=== PATIENT | female | born 2000 | race Caucasian/White ===

== ENCOUNTER 2024-11-26 14:00 | Outpatient (AMB) | payer MEDICAID, SELFPAY ==
[2024-11-26 14:34] VITALS: BP 114/73; PULSE 79; RESP 18; TEMP 36.2; O2SAT 98; BMI 33.2
--- NOTE | 2024-11-26 14:34 | AMB.OBINITIA ---
Vital Signs 11/26/24 14:34 Height 1.65 m Height Method Stated Weight 90.492 kg Weight Measurement Method Standing Scale BMI 33.2 BP 114/73 Blood Pressure Source Automatic Cuff Blood Pressure Location Left Upper Arm Position Sitting Respiration 18 Pulse 79 Pulse Source Monitor Temp 97.2 F Temp Source Oral Pulse Oximetry (%) 98 Oxygen Delivery Method Room Air Allergies/Home Meds Allergies & Medications Allergies No Known Allergies Allergy (Verified 11/26/24 14:35) Medication Reconciliation cholecalciferol (vitamin D3) 25 mcg (1,000 unit) capsule (Vitamin D3) 1,000 unit PO QDAY 04/03/18 [History Confirmed 11/26/24] cyclobenzaprine 10 mg tablet 10 mg PO BID #10 tabs 04/03/18 [Rx Confirmed 11/26/24] naproxen 500 mg tablet 500 mg PO BID PRN pain #20 tabs 04/03/18 [Rx Confirmed 11/26/24] Intake Visit Data Collection New Patient or Established: New Patient not seen in past 3 years at [facility] (considered New) Reason for Visit:: OB TRANSFER Seen by Clinical Staff ONLY (RN/MA): No Assistant Federal Public Defender Required: No Do You Feel Safe at Home: Yes Authorities Contacted: N/A PCP or OBGYN visit in last 3 months: Yes Hx Now: Yes Are you currently on any form of Control: No Pain Present Currently: No Pain Scale Used: Chaidez-Johnson/Numerical Pain scale:: 0 Smoking Status Smoking Status: Never smoker Questionnaires Covid-19 Vaccine Questionnaire Has patient been vacinated for Covid-19 Have you been vacinated for Covid-19: Yes PHQ-9 PHQ-2 Over the last 2 weeks, how often have you been bothered by any of the following problems? 1. Little interest or pleasure in doing things: not at all 2. Feeling down, depressed, or hopeless: not at all Total score: 0 PHQ-9 3. Trouble falling or staying asleep, or sleeping too much: Not at all 4. Feeling tired or having little energy: Not at all 5. Poor appetite or overeating: Not at all 6. Feeling bad about yourself - or that you are a failure or have let yourself or your family down: Not at all 7. Trouble concentrating on things, such as reading the newspaper or watching television: Not at all 8. Moving or speaking so slowly that other people could have noticed? - Or the opposite - being so fidgety or restless that you have been moving around a lot more than usual: not at all 9. Thoughts that you would be better off or of hurting yourself in some way: Not at all Total score: 0 If you checked off any problems, how difficult have these problems made it for you to do your work, take care of things at home, or get along with other people?: not difficult at all Source: Developed by Drs. Manuelito Soliz, Arely Dong, J Luis Torres and colleagues, with an educational glenn from [employer]. Depression screen completed yes Social History Living Situation History Marital Status: Single Lives With: Family Housing: House Tobacco History Smoking Status: Never smoker Second Hand Smoke Exposure: No Alcohol History Alcohol Intake: Never Domestic Abuse History Do You Feel Safe at Home: Yes History of Present Illness HPI Narrative 24 yo g1po for OBI. OB transfer from Dr Aquino. lmp 03/28/24. EDC 01/02/25. poor dates. menses q month. 1st sono on 08/14/24: 17w6. changed EDC to 01/16/25. f/u sono 10/16/24; 27.4. edc 01/11/25. final ROBINA: 01/16/25. patient is B+,abs-, RPR::NR, Rubella imm, HBSAG-,HIV-,HC-, GC/CT-, 1hr gtt:wnl, A1c;113. NIPT/AFP and carrier screen- OB Initial Visit OB Flowsheet OB Flowsheet Initial Weight: Not Recorded Date <del>?</del> EGA Weight BP Alb Glu CTX Pres Fundal ht FHR Mov Dilation Station Effacement Hx Notes Visit Note 11/26/24 <del>?</del> 32w 5d 90.492 kg 114/73 absent unknown 31 146 active 24 yo , OB transfer from Dr Aquino. no problem with . no PTL complaints, fetus active. decline TDAP today discuss TDAP. discuss PTL precaution, increase fluid, fkc BID. continue PNV, discuss diet and weight, rtc 2 week OBC Menstrual History Menstrual reliability: definite Flow: normal Menstrual regularity: regular Monthly: Yes Age at menarche: 11 On control pills at conception: No OB History : 1 Para: 0 Hx # Pregnancies: 0 Hx Total # of Abortions (Spontaneous & Elective): 0 # of Living Children: 0 Infection History & Risk Evaluation History of STDs: none HIV risk evaluation: low risk Hepatitis B risk evaluation: low risk Patient or partner has history of Genital Herpes: No Varicella/chicken pox status: immunized Genetic Screening & History Genetic Screening/Teratology Counseling - Includes patient, baby's father, or anyone in either family with: 1. Patient's age 35 years or older as of estimated date of delivery: No 2. Thalassemia (Portuguese, Swiss, Mediterranean, or Background); MCV less than 80: No 3. Neural Tube Defect (Meningomyelocele, Spina Bifida, or Anencephaly): No 4. Congenital Heart Defect: No 5. Down Syndrome: No 6. Vamsi-Sachs (Ashkenazi Gnosticism, Cajun, Macedonian Kittitian): No 7. Oksana Disease (Ashkenazi Gnosticism): No 8. Familial Dysautonomia (Ashkenazi Gnosticism): No 9. Sickle Cell Disease or Trait (): No 10. Hemophilia or other blood disorders: No 11. Muscular Dystrophy: No 12. Cystic Fibrosis: No 13. Sanchez's Chorea: No 14. Mental Retardation/Autism: No 15. Other inherited genetic or chromosomal disorder: No 16. Maternal Metabolic Disorder (EG,TYPE 1 Diabetes, PKU): No 17. Patient or baby's father had a child with defects not listed above: No 18. Recurrent loss or a stillbirth: No 19. Medications (including supplements, vitamins, herbs or otc drugs)/illicit/recreational drugs/alcohol since last menstrual period: No 20. Any other: No Infection History 1. Live with someone with TB or exposed to TB: No 2. Rash or viral illness since last menstrual period: No 3. Hepatitis B,C: No Other (see comments) Source: [employer] Review of Systems Review of Systems Systems Reviewed: All systems reviewed, normal except as documented Exam General Limitations: no limitations General Appearance: alert, in no apparent distress, comfortable, cooperative, healthy appearing, well developed and well groomed Head Head exam: atraumatic, normocephalic and normal inspection Resp Respiratory exam: Present normal lung sounds bilaterally Card Cardiovascular exam: Present regular rate, normal rhythm and normal heart sounds Abdominal Abdominal exam: Present soft and normal bowel sounds Psych Psychiatric exam: Present normal affect and normal mood Office Procedures OB Clinic LOC & Office Proc's Nursing/Assessment Patient Status: Initial/New Patient OB Clinic Nursing Assessment: Medication Reconciliation, Update PMH in EMR and Vital Signs OB Clinic Coordination of Care: Education Complex Pt/Fam, Consent,records obtained, informed consent, Lab and Imaging orders, Results/Orders obtained and Staff clarify orders Special Needs: Heart tones New Patient Charge New Patient Point Assignment: [id number] New Patient 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 rtc 2 week obc Additional Plan Follow Up: 2 Weeks (obc)
== END 2024-11-26 14:39 | disposition home or self-care (01) ==
LOC: HODSOBC 14:00
PROVIDERS: PCP Family Medicine; Referring Provider Family Medicine; Supervising Provider Advanced Practice Midwife; Visit Provider Advanced Practice Midwife
DX: Z34.03 Encounter for supervision of normal first pregnancy, third trimester (principal); Z3A.32 32 weeks gestation of pregnancy; Z28.21 Immunization not carried out because of patient refusal
CPT/HCPCS: 99203; G0463

== ENCOUNTER 2024-12-24 13:56 | Outpatient (AMB) | payer MEDICAID, SELFPAY ==
[2024-12-24 14:18] VITALS: BP 115/83; PULSE 86; RESP 17; TEMP 36.7; O2SAT 98; BMI 34.7
--- NOTE | 2024-12-24 14:18 | OBCLNT_ITS ---
Vital Signs 12/24/24 14:18 Height 1.65 m Height Method Measured Weight 94.404 kg Weight Measurement Method Standing Scale BMI 34.7 BP 115/83 Blood Pressure Source Automatic Cuff Blood Pressure Location Right Upper Arm Position Sitting Respiration 17 Pulse 86 Pulse Source Monitor Temp 98.0 F Temp Source Temporal Artery Scan Pulse Oximetry (%) 98 Oxygen Delivery Method Room Air Allergies/Home Meds Allergies & Medications Allergies No Known Allergies Allergy (Verified 12/24/24 14:19) Medication Reconciliation cholecalciferol (vitamin D3) 25 mcg (1,000 unit) capsule (Vitamin D3) 1,000 unit PO QDAY 04/03/18 [History Confirmed 12/24/24] cyclobenzaprine 10 mg tablet 10 mg PO BID #10 tabs 04/03/18 [Rx Confirmed 12/24/24] naproxen 500 mg tablet 500 mg PO BID PRN pain #20 tabs 04/03/18 [Rx Confirmed 12/24/24] Intake Visit Data Collection New Patient or Established: Established Patient (seen at [facility] within 3 years) Reason for Visit:: OBC Consent obtained for Telemed Visit: No Seen by Clinical Staff ONLY (RN/MA): No Cnc Set Up Operator Required: No Do You Feel Safe at Home: Yes Authorities Contacted: N/A PCP or OBGYN visit in last 3 months: Yes Date of Last PCP or OBGYN visit: 11/26/24 Hx Now: Yes Are you currently on any form of Control: No Pain Present Currently: No Pain Scale Used: Chaidez-Johnson/Numerical Pain scale:: 0 Smoking Status Smoking Status: Never smoker Questionnaires Covid-19 Vaccine Questionnaire Has patient been vacinated for Covid-19 Have you been vacinated for Covid-19: Yes PHQ-9 PHQ-2 Over the last 2 weeks, how often have you been bothered by any of the following problems? 1. Little interest or pleasure in doing things: not at all PHQ-9 8. Moving or speaking so slowly that other people could have noticed? - Or the opposite - being so fidgety or restless that you have been moving around a lot more than usual: not at all Source: Developed by Drs. Manuelito Soliz, Arely Dong, J Luis Torres and colleagues, with an educational glenn from [employer]. Social History Living Situation History Lives With: Family Housing: House Tobacco History Smoking Status: Never smoker Second Hand Smoke Exposure: No Alcohol History Alcohol Intake: Never Domestic Abuse History Do You Feel Safe at Home: Yes Care OB Visit Log OB Flowsheet Initial Weight: Not Recorded Date -?-?-?-?-?-?-?-?-?-?-?-?- EGA Weight BP Alb Glu CTX Pres Fundal ht FHR Mov Dilation Station Effacement Hx Notes Visit Note 11/26/24 -?-?-?-?-?-?-?-?-?-?-?-?- 32w 5d 90.492 kg 114/73 absent unknown 31 146 active 24 yo , OB transfer from Dr Aquino. no problem with . no PTL complaints, fetus active. decline TDAP today discu ss TDAP. discuss PTL precaution, increase fluid, fkc BID. continue PNV, discuss diet and weight, rtc 2 week OBC 12/24/24 -?-?-?-?-?-?-?-?-?-?-?-?- 36w 5d 94.404 kg 115/83 occasional cephalic 37 145 active 1 -4 50 increased pressure, deneis leaking or bleeding, fetus active increased pressure, deneis leaking or bleeding, fetus acti ve, cx soft,post GBS today, discuss labor precaution, fkc bid, call for sono. comfort measure early labor, discuss danger s/s ROBINA Calculator Estimated Delivery Date Method Current WG Current Estimate 01/16/25 Ultrasound #1 36w 5d Other Estimates 01/02/25 LMP (Uncertain) 38w 5d 01/11/25 Ultrasound #2 37w 3d Notes Visit Date: 11/26/24 Last Updated by: Jen Stout CNM 24 yo g1po. LMP 03/28/24. wrong dates, sono 08/14/24: 17w6. EDC 01/16/25. B+, abs-,rpr;;nr, rub imm, hbsag-, hIV-, HC-, gc/ct-, 1 hr gtt:wnl, A1: 5.1, NIPT/AFP.carrier screen- Office Procedures OB Clinic LOC & Office Proc's Nursing/Assessment Patient Status: Established Patient OB Clinic Nursing Assessment: Medication Reconciliation, Update PMH in EMR and Vital Signs OB Clinic Coordination of Care: Complex Care and Chronic Disease 1-5, Consent,records obtained, informed consent, Education Simp Pt/Fam, Results/Orders obtained and Staff clarify orders Special Needs: Heart tones Established Patient Charge Established Patient Point Assignment: 120 Established Patient Point Charge: EP Level 4 (120-155) Assessment & Plan Diagnosis / Problem List (1) Encounter for supervision of high risk in third trimester, antepartum: Status: Acute Plan Discussed labor precautions. GBS today. Discussed kick count twice a day. Discussed dangerously signs and symptoms. And ER precautions. Make called for ultrasound results Additional Plan Follow Up: 1 Week (obc)
== END 2024-12-24 14:51 | disposition home or self-care (01) ==
LOC: HODSOBC 13:56
PROVIDERS: PCP Family Medicine; Referring Provider Family Medicine; Supervising Provider Advanced Practice Midwife; Visit Provider Advanced Practice Midwife
DX: O09.93 Supervision of high risk pregnancy, unspecified, third trimester (principal); Z3A.36 36 weeks gestation of pregnancy; Z36.85 Encounter for antenatal screening for Streptococcus B
CPT/HCPCS: 99214; G0463

== ENCOUNTER 2025-01-01 14:28 | Outpatient (AMB) | payer MEDICAID, SELFPAY ==
[2025-01-01 14:41] VITALS: BP 114/74; PULSE 86; RESP 17; TEMP 36.5; O2SAT 98; BMI 35.2
--- NOTE | 2025-01-01 14:41 | OBCLNT_ITS ---
Vital Signs 01/01/25 14:41 Height 1.65 m Height Method Measured Weight 95.878 kg Weight Measurement Method Standing Scale BMI 35.2 BP 114/74 Blood Pressure Source Automatic Cuff Blood Pressure Location Right Upper Arm Position Sitting Respiration 17 Pulse 86 Pulse Source Monitor Temp 97.7 F Temp Source Temporal Artery Scan Pulse Oximetry (%) 98 Oxygen Delivery Method Room Air Allergies/Home Meds Allergies & Medications Allergies No Known Allergies Allergy (Verified 01/01/25 14:42) Medication Reconciliation vits no.126-ferrous fum 28 mg iron-folic acid 800 mcg tablet (Classic ) tab PO 01/01/25 [History Confirmed 01/01/25] Intake Visit Data Collection New Patient or Established: Established Patient (seen at [facility] within 3 years) Reason for Visit:: OBC Consent obtained for Telemed Visit: No Seen by Clinical Staff ONLY (RN/MA): No Ditching Machine Engineer Required: No Do You Feel Safe at Home: Yes Authorities Contacted: N/A PCP or OBGYN visit in last 3 months: Yes Date of Last PCP or OBGYN visit: 12/24/24 Hx Now: Yes Are you currently on any form of Control: No Pain Present Currently: No Pain Scale Used: Chaidez-Johnson/Numerical Pain scale:: 0 Smoking Status Smoking Status: Never smoker Questionnaires Covid-19 Vaccine Questionnaire Has patient been vacinated for Covid-19 Have you been vacinated for Covid-19: Yes PHQ-9 PHQ-2 Over the last 2 weeks, how often have you been bothered by any of the following problems? 1. Little interest or pleasure in doing things: not at all PHQ-9 8. Moving or speaking so slowly that other people could have noticed? - Or the opposite - being so fidgety or restless that you have been moving around a lot more than usual: not at all Source: Developed by Drs. Manuelito Soliz, Arely Dong, J Luis Torres and colleagues, with an educational glenn from [employer]. Social History Living Situation History Lives With: Family Housing: House Tobacco History Smoking Status: Never smoker Second Hand Smoke Exposure: No Alcohol History Alcohol Intake: Never Domestic Abuse History Do You Feel Safe at Home: Yes Care OB Visit Log OB Flowsheet Initial Weight: Not Recorded Date -?-?-?-?-?-?-?-?-?-?-?-?- EGA Weight BP Alb Glu CTX Pres Fundal ht FHR Mov Dilation Station Effacement Hx Notes Visit Note 11/26/24 -?-?-?-?-?-?-?-?-?-?-?-?- 32w 5d 90.492 kg 114/73 absent unknown 31 146 active 24 yo , OB transfer from Dr Aquino. no problem with . no PTL complaints, fetus active. decline TDAP today discu ss TDAP. discuss PTL precaution, increase fluid, fkc BID. continue PNV, discuss diet and weight, rtc 2 week OBC 12/24/24 -?-?-?-?-?-?-?-?-?-?-?-?- 36w 5d 94.404 kg 115/83 occasional cephalic 37 145 active 1 -4 50 increased pressure, deneis leaking or bleeding, fetus active increased pressure, deneis leaking or bleeding, fetus acti ve, cx soft,post GBS today, discuss labor precaution, fkc bid, call for sono. comfort measure early labor, discuss danger s/s 01/01/25 -?-?-?-?-?-?-?-?-?-?-?-?- 37w 6d 95.878 kg 114/74 occasional cephalic 37 145 active 1 -4 50 CX: soft. fetus active, OCC uc, no VB or LOF discuss fkc bid, discuss labor precaution and danger s/s, increase fluid, rtc 1 week obc ROBINA Calculator Estimated Delivery Date Method Current WG Current Estimate 01/16/25 Ultrasound #1 37w 6d Other Estimates 01/02/25 LMP (Uncertain) 39w 6d 01/11/25 Ultrasound #2 38w 4d Notes Visit Date: 01/01/25 Last Updated by: Jen Stout CNM 12/24:gbs- Visit Date: 11/26/24 Last Updated by: Jen Stout CNM 24 yo g1po. LMP 03/28/24. wrong dates, sono 08/14/24: 17w6. EDC 01/16/25. B+, abs-,rpr;;nr, rub imm, hbsag-, hIV-, HC-, gc/ct-, 1 hr gtt:wnl, A1: 5.1, NIPT/AFP.carrier screen- Office Procedures OB Clinic LOC & Office Proc's Nursing/Assessment Patient Status: Established Patient OB Clinic Nursing Assessment: Medication Reconciliation, Update PMH in EMR and Vital Signs OB Clinic Coordination of Care: Complex Care and Chronic Disease 1-5, Consent,records obtained, informed consent, Education Simp Pt/Fam and 4+ Authorizations needed Special Needs: Heart tones Established Patient Charge Established Patient Point Assignment: 130 Established Patient Point Charge: EP Level 4 (120-155) Assessment & Plan Diagnosis / Problem List (1) Encounter for supervision of high risk in third trimester, antepartum: Status: Acute Plan Discussed kick counts twice daily. Discussed labor precautions and danger signs symptoms. Continue prenatals. Increase fluids. Return in a week OB check Additional Plan Follow Up: 1 Week (OBC)
== END 2025-01-01 15:59 | disposition home or self-care (01) ==
LOC: HODSOBC 14:28
PROVIDERS: PCP Family Medicine; Referring Provider Family Medicine; Supervising Provider Advanced Practice Midwife; Visit Provider Advanced Practice Midwife
DX: O09.93 Supervision of high risk pregnancy, unspecified, third trimester (principal); Z3A.37 37 weeks gestation of pregnancy
CPT/HCPCS: 99214; G0463

== ENCOUNTER 2025-01-09 13:58 | Outpatient (AMB) | payer MEDICAID, SELFPAY ==
[2025-01-09 14:12] VITALS: BP 103/69; PULSE 68; RESP 17; TEMP 36.8; O2SAT 98; BMI 35.3
--- NOTE | 2025-01-09 14:12 | AMB.OBVISIT ---
Vital Signs 01/09/25 14:12 Height 1.65 m Height Method Stated Weight 96.275 kg Weight Measurement Method Standing Scale BMI 35.3 BP 103/69 Blood Pressure Source Automatic Cuff Blood Pressure Location Right Upper Arm Position Sitting Respiration 17 Pulse 68 Pulse Source Monitor Temp 98.3 F Temp Source Temporal Artery Scan Pulse Oximetry (%) 98 Oxygen Delivery Method Room Air Allergies/Home Meds Allergies & Medications Allergies No Known Allergies Allergy (Verified 01/09/25 14:21) Medication Reconciliation vits no.126-ferrous fum 28 mg iron-folic acid 800 mcg tablet (Classic ) tab PO 01/01/25 [History Confirmed 01/09/25] Intake Visit Data Collection New Patient or Established: Established Patient (seen at [facility] within 3 years) Reason for Visit:: OBC 38W 6D Health Care Coach Required: No Do You Feel Safe at Home: Yes Authorities Contacted: N/A PCP or OBGYN visit in last 3 months: Yes Date of Last PCP or OBGYN visit: 01/01/25 Hx Now: Yes Are you currently on any form of Control: No Pain Present Currently: Yes Pain Location: Abdomen (CRAMPING) Pain Scale Used: Chaidez-Johnson/Numerical Pain scale:: 5 Smoking Status Smoking Status: Never smoker Questionnaires Covid-19 Vaccine Questionnaire Has patient been vacinated for Covid-19 Have you been vacinated for Covid-19: No PHQ-9 PHQ-2 Over the last 2 weeks, how often have you been bothered by any of the following problems? 1. Little interest or pleasure in doing things: not at all 2. Feeling down, depressed, or hopeless: not at all Total score: 0 PHQ-9 3. Trouble falling or staying asleep, or sleeping too much: Not at all 4. Feeling tired or having little energy: Not at all 5. Poor appetite or overeating: Not at all 6. Feeling bad about yourself - or that you are a failure or have let yourself or your family down: Not at all 7. Trouble concentrating on things, such as reading the newspaper or watching television: Not at all 8. Moving or speaking so slowly that other people could have noticed? - Or the opposite - being so fidgety or restless that you have been moving around a lot more than usual: not at all 9. Thoughts that you would be better off or of hurting yourself in some way: Not at all Total score: 0 If you checked off any problems, how difficult have these problems made it for you to do your work, take care of things at home, or get along with other people?: not difficult at all Source: Developed by Drs. Manuelito Soliz, Arely Dong, J Luis Torres and colleagues, with an educational glenn from [employer]. Depression screen completed yes Social History Living Situation History Marital Status: Lives With: Family Housing: House Tobacco History Smoking Status: Never smoker Second Hand Smoke Exposure: No Alcohol History Alcohol Intake: Never Domestic Abuse History Do You Feel Safe at Home: Yes Care OB Visit Log OB Flowsheet Initial Weight: Not Recorded Date <del>?</del> EGA Weight BP Alb Glu CTX Pres Fundal ht FHR Mov Dilation Station Effacement Hx Notes Visit Note 11/26/24 <del>?</del> 32w 5d 90.492 kg 114/73 absent unknown 31 146 active 24 yo , OB transfer from Dr Aquino. no problem with . no PTL complaints, fetus active. decline TDAP today discuss TDAP. discuss PTL precaution, increase fluid, fkc BID. continue PNV, discuss diet and weight, rtc 2 week OBC 12/24/24 <del>?</del> 36w 5d 94.404 kg 115/83 occasional cephalic 37 145 active 1 -4 50 increased pressure, deneis leaking or bleeding, fetus active increased pressure, deneis leaking or bleeding, fetus active, cx soft,post GBS today, discuss labor precaution, fkc bid, call for sono. comfort measure early labor, discuss danger s/s 01/01/25 <del>?</del> 37w 6d 95.878 kg 114/74 occasional cephalic 37 145 active 1 -4 50 CX: soft. fetus active, OCC uc, no VB or LOF discuss fkc bid, discuss labor precaution and danger s/s, increase fluid, rtc 1 week obc 01/09/25 <del>?</del> 39w 0d 96.275 kg 103/69 occasional cephalic 38 145 active 1 -3 50 cx soft/mid. Reports good movement. Increased cramps today. No bleeding. No leaking fluid. IOL 01/17/25. Discussed labor precautions. I discussed kick counts twice a day. Parameters. Discussed ER precautions. Increase fluids. Discussed weight gain. And induction is scheduled for January 17, 2025. ROBINA Calculator Estimated Delivery Date Method Current WG Current Estimate 01/16/25 Ultrasound #1 39w 0d Other Estimates 01/02/25 LMP (Uncertain) 41w 0d 01/11/25 Ultrasound #2 39w 5d Notes Visit Date: 01/09/25 Last Updated by: Jen Stout CNM 24 yo . 1st ob sono 08/14/24. IUP 17.6, EDC 01/16/25. lmp 03/28/25. EDC 01/02/25. UNsure dates, B+.abs-,rpr;;nr, rub imm, hbsag-,hiv-,gc/ct-, 1 hr gtt wnl. nipt/carrier screen- Visit Date: 01/01/25 Last Updated by: Jen Stout CNM 12/24:gbs- Visit Date: 11/26/24 Last Updated by: Jen Stout CNM 24 yo g1po. LMP 03/28/24. wrong dates, sono 08/14/24: 17w6. EDC 01/16/25. B+, abs-,rpr;;nr, rub imm, hbsag-, hIV-, HC-, gc/ct-, 1 hr gtt:wnl, A1: 5.1, NIPT/AFP.carrier screen- Office Procedures OB Clinic LOC & Office Proc's Nursing/Assessment Patient Status: Established Patient OB Clinic Nursing Assessment: Medication Reconciliation, Update PMH in EMR and Vital Signs OB Clinic Coordination of Care: Complex Care and Chronic Disease 1-5, Consent,records obtained, informed consent, Education Simp Pt/Fam and Staff clarify orders Special Needs: Heart tones Established Patient Charge Established Patient Point Assignment: 115 Established Patient Point Charge: EP Level 3 (80-115) Assessment & Plan Diagnosis / Problem List (1) Encounter for supervision of high risk in third trimester, antepartum: Status: Acute Plan Schedule induction of labor for 01/17/2025. Discussed labor precautions and parameters. I discussed ER precautions. Patient to do kick count twice a day and I reinforced that with her. And I discussed that with her. Walk in comfort measures for early labor. Return in a week OB check Additional Plan Follow Up: 1 Week (obc)
== END 2025-01-09 14:37 | disposition home or self-care (01) ==
LOC: HODSOBC 13:58
PROVIDERS: PCP Family Medicine; Referring Provider Family Medicine; Supervising Provider Advanced Practice Midwife; Visit Provider Advanced Practice Midwife
DX: O09.93 Supervision of high risk pregnancy, unspecified, third trimester (principal); Z3A.39 39 weeks gestation of pregnancy
CPT/HCPCS: 99213; G0463

== ENCOUNTER 2025-01-10 16:00 | Inpatient (IN) | payer MEDICAID, SELFPAY ==
[2025-01-10] VITALS (12 sets, daily range): BP systolic 117–130; BP diastolic 71–83; PULSE 64–103; RESP 16–18; TEMP 36.8–36.9; O2SAT 94–99; BMI 33.2
[2025-01-10 16:28] LABS: ROM Kit Lot # 58102387; Swb Mxed in Solvent 1 min? Yes
[2025-01-10 16:29] LABS: ROM Kit Exp Date# 11-15-27; ROM Swab Mixed By: BF; Rupture of Fetal Membranes Positive (Negative)
--- NOTE | 2025-01-10 17:02 | XR_ITS ---
Examination: age limited TECHNIQUE: Limited transabdominal sonographic images pelvis INDICATIONS: Unknown weight and unknown presentation Date and time: January 10, 2025, 1717 hours FINDINGS: Viable intrauterine gestation cephalic presentation. Cardiac motion 160 bpm Amniotic fluid index 6.0 cm Estimated weight 3616.6 g Estimated gestational age 39 weeks 0 days IMPRESSION: A viable intrauterine gestation cephalic presentation
[2025-01-10 17:43] LABS: Basophils # (Auto) 0.0 Thou/mm3 (0.0-0.2); Basophils % (Auto) 0 % (0-2.5); Eosinophils # (Auto) 0.0 Thou/mm3 (0.0-0.5); Eosinophils % (Auto) 0 % (0-10); Hematocrit 38.2 % (36.0-46.0); Hemoglobin 12.8 g/dL (12.0-16.0); Immature Granulocytes Auto 0.04 Thou/mm3 (0.00-0.00); Lymphocytes # (Auto) 1.8 Thou/mm3 (1.0-4.8); Lymphocytes % (Auto) 21 % (10-50); Mean Corpuscular HGB Conc 33.5 g/dl (31.0-37.0); Mean Corpuscular Hemoglobin 31.6 pg (25.0-35.0); Mean Corpuscular Volume 94 fL (80-100); Monocytes # (Auto) 0.5 Thou/mm3 (0.0-0.8); Monocytes % (Auto) 6 % (0-12); Neutrophils # (Auto) 6.4 Thou/mm3 (1.8-7.7); Neutrophils % (Auto) 73 % (37-80); Nucleated Red Blood Cell # 0.00 Thou/mm3 (0.00-0.00); Nucleated Red Blood Cell % 0 /100 WBC (0); Platelet Count 193 Thou/mm3 (140-440); RDW Standard Deviation 45.6 fL (36.4-46.3); Red Blood Count 4.05 Miln/mm3 (4.00-5.20); White Blood Count 8.8 Thou/mm3 (3.6-11.0)
[2025-01-10 18:20] LABS: Syphilis Nonreactive (Nonreactive)
--- NOTE | 2025-01-10 19:18 | PD.LDHP ---
Documentation for date of: 01/10/25 OB Labor/Induct. HPI History of Present Illness Chief complaint: Ruptured membranes at 1500 01/10/2025 : 1 Para: 0 Term pregnancies: 0 pregnancies: 0 Living children: 0 History of Abortions: Spontaneous and Elective: 0 History of Vaginal deliveries: 0 History of sections: No History of : No ROBINA: 01/16/25 Gestational Age (weeks): 39 Gestational Age (days): 1 History of present illness: The patient is a 24-year-old G1, P0 who started her care with Dr. Hameed and then transferred to [facility] at the [facility] who presented reporting ruptured membranes at 3:00 this afternoon. On presentation she was 1 cm. She had an ultrasound performed revealing a vertex presentation. I examined the patient approximately 7:00 PM and she was 2 cm approximately 70% effaced with a -2 station and posterior cervix. Patient had a lot of clear fluid with exam. The plan will be a Cytotec induction. Patient was given 50 mg milligrams of Cytotec at 1840. Group B strep is negative. History of Present Dating criteria: based on 2nd trimester US only Adequate Care: Yes Ultrasounds: normal mid trimester US Obstetrical complications: none Medical complications: none Labs Maternal Blood Type: B Pos Labs: Positive: Rubella Titre, Negative: RPR, Hepatitis B, HIV, Chlamydia, Gonorrhea and Group Beta Strep and Unknown: Herpes Type 1, Herpes Type 2 and Covid-19 Review of Systems Review of Systems Narrative Review of Systems: Patient reports leaking clear fluid since 3:00 this afternoon mild cramping no heavy bleeding. She is interested in epidural. Past Medical History Surgical History SURGICAL: Negative Section Meds Home Medications and Allergies Home Medications ?Medication ?Instructions ?Recorded ?Confirmed ?Type vits no.126-ferrous fum 1 tab PO QDAY 01/01/25 01/10/25 History 28 mg iron-folic acid 800 mcg tablet (Classic ) Allergies Allergy/AdvReac Type Severity Reaction Status Date / Time No Known Allergies Allergy Verified 01/10/25 16:11 OB Exam Physical Exam Vital signs: Temp Pulse Resp BP O2 Del Method 98.3 F 71 17 126/76 Room Air 01/10/25 16:06 01/10/25 18:34 01/10/25 16:06 01/10/25 18:34 01/10/25 16:06 Detailed Labor and Delivery Exam Dilation (cm): 2 Effacement (%): 80 Cervix position: posterior station: -2 Consistency: medium Presentation: Vertex Membranes: ruptured Amniotic fluid: clear Baseline heart rate: 140 monitor accelerations: 15x15 monitor decelerations: None extermination supervisor variability: Moderate (11-25) Tachysystole: No Contraction intensity: Mild OB Results Labs 01/10/25 17:20 Labs: Short CBC 01/10/25 Range/Units 17:20 WBC 8.8 (3.6-11.0) Thou/mm3 Hgb 12.8 (12.0-16.0) g/dL Hct 38.2 (36.0-46.0) % Plt Count 193 (140-440) Thou/mm3 OB Assessment & Plan Assessment and Plan (1) Encounter for supervision of high risk in third trimester, antepartum: Status: Acute (2) Full-term premature rupture of membranes: Status: Acute Assessment and plan: Admit patient. Cytotec induction of labor. Additional Plan Induction method: per misoprostol protocol Plan: induction Additional Plan Comment: Baby is vertex 3616 g. (2) Full-term premature rupture of membranes Qualifiers: PROM onset of labor timing: unspecified duration between rupture of membranes and onset of labor Qualified Code(s): O42.92 - Full-term premature rupture of membranes, unspecified as to length of time between rupture and onset of labor
[2025-01-10] MEDS: fentaNYL CIT INJ 50 mCg/ML AMP 2ML 100 MCG IVP (22:20)
[2025-01-10] MEDS: RINGERS LACTATED 1000 ML 1,000 ML 100 ML IV (23:50)
[2025-01-11] VITALS (214 sets, daily range): BP systolic 97–198; BP diastolic 53–136; PULSE 69–136; RESP 16–20; TEMP 36.7–38.1; O2SAT 88–100
[2025-01-11] MEDS: RINGERS LACTATED 1000 ML 1,000 ML 100 ML IV ×3 (00:51→10:02)
[2025-01-11] MEDS: ceFAZolin/D5W 2 GM IV 2 GM/100 ML BAG IV ×3 (06:10→21:50)
[2025-01-11] MEDS: OXYTOCIN in NS 30 units 30 UNIT/500 ML BAG IV (08:06)
--- NOTE | 2025-01-11 08:34 | PD.LDPN ---
Documentation for date of: 01/11/25 OB Labor Progress Note Pelvic Exam Dilation (cm): 5 Effacement (%): 80 station: -1 Amniotic membrane status: Ruptured Contractions Monitor mode: Internal Contraction frequency: 3-5 Contraction intensity: Moderate Status status: Category l Assessment and Plan Comments: Patient is a 24-year-old 1 para 0 who was handed off to me from the overnight on-call physician, patient was admitted in early labor yesterday with spontaneous rupture of membranes at 1500 hrs. patient has not made any significant progress, she did spike a temperature of 99.6 currently on Ancef and Tylenol Assessment and plan Continue current plan high likelihood of proceeding to delivery if patient shows signs of chorioamnionitis
[2025-01-11] MEDS: ACETAMINOPHEN IVPB 1,000 MG/100 ML VIAL 250 MG IV (09:33)
[2025-01-11] MEDS: MINERAL OIL 30 ML UDC TOP (10:56)
[2025-01-11] MEDS: OXYTOCIN in NS 20 units 20 UNIT/1,000 ML BAG 125 UNIT IV (11:10)
[2025-01-11] MEDS: TRANEXAMIC ACID 1,000 MG IVPB 1,000 MG/100 ML BAG 200 MG IV ×2 (11:15→20:36)
[2025-01-11] MEDS: BENZO/LANO/ALOE (Dermoplast) 60 GM CAN 1 SPRAY TOP (11:22)
--- NOTE | 2025-01-11 11:36 | PD.LDDELS ---
Vacuum Assisted Delivery General Patient Counseled by physician:: Yes Informed consent to patient:: Yes Estimated weight:: 3175.147 g Cervical dilation:: fully dilated station:: +2 position:: LOP Molding:: No Caput:: Yes Vacuum Application Vacuum type:: Mityvac Vacuum application:: flexing median Cup Placement Flexion point identified:: Yes Cup approp. 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 Data ([place]) Data Hx Section: No : 1 Term: 0 : 0 Livin Abortions: Spontaneous & Theraputic: 0 Delivery Data ([place]) Labor Data Initiation of labor: Induction Induction/Augmentation Agent: Cytotec-PO and Pitocin ROM date: 01/10/25 ROM time: 15:30 Amniotic membrane rupture type: Spontaneous Amniotic fluid description: Clear Delivery Data Onset of labor date: 01/10/25 Onset of labor time: 15:30 Complete dilation date: 01/11/25 Complete dilation time: 10:50 [place] delivery date: 01/11/25 delivery time: 11:09 Placenta delivery date: 01/11/25 Placenta delivery time: 11:13 Stage 1 total time: Labor - Stage 1 Duration 19 hours and 20 minutes Delivered by: Kelvin Campbell Delivery nurse: Nelly Hair RN [place] nurse: Carmen SALAS Shipping And Receiving Supervisor at delivery: Yes (Dr. Hernandez) Support person(s) at delivery: fob and mother of pt Delivery Method Delivery method: Normal Vaginal Delivery Presentation: Vertex Placenta Placenta delivery description: Spontaneous Cord blood sent to lab: Yes cord blood collection: Cord Blood Type Umbilical Cord cord description: 3 Vessels [place] Data ([place]) [place] Data [place]'s gender: Male weight (gms): 3040 g Weight (pounds): 6 lbs and 11.2 ozs length: 51.5 cm 1 minute: 7 5 minutes: 9 10 minutes: 9
[2025-01-11] MEDS: IBUPROFEN TAB 400 MG TABLET 800 MG PO ×2 (11:55→21:56)
[2025-01-12 03:33] VITALS: BP 109/71; PULSE 88; RESP 18; TEMP 36.8; O2SAT 96
[2025-01-12] MEDS: TRANEXAMIC ACID 1,000 MG IVPB 1,000 MG/100 ML BAG 200 MG IV (04:08)
[2025-01-12 05:33] LABS: Basophils # (Auto) 0.0 Thou/mm3 (0.0-0.2); Basophils % (Auto) 0 % (0-2.5); Eosinophils # (Auto) 0.1 Thou/mm3 (0.0-0.5); Eosinophils % (Auto) 0 % (0-10); Hematocrit 30.3 % (36.0-46.0); Hemoglobin 10.4 g/dL (12.0-16.0); Immature Granulocytes Auto 0.09 Thou/mm3 (0.00-0.00); Lymphocytes # (Auto) 2.7 Thou/mm3 (1.0-4.8); Lymphocytes % (Auto) 15 % (10-50); Mean Corpuscular HGB Conc 34.3 g/dl (31.0-37.0); Mean Corpuscular Hemoglobin 32.7 pg (25.0-35.0); Mean Corpuscular Volume 95 fL (80-100); Monocytes # (Auto) 0.8 Thou/mm3 (0.0-0.8); Monocytes % (Auto) 5 % (0-12); Neutrophils # (Auto) 14.5 Thou/mm3 (1.8-7.7); Neutrophils % (Auto) 80 % (37-80); Nucleated Red Blood Cell # 0.00 Thou/mm3 (0.00-0.00); Nucleated Red Blood Cell % 0 /100 WBC (0); Platelet Count 124 Thou/mm3 (140-440); RDW Standard Deviation 48.3 fL (36.4-46.3); Red Blood Count 3.18 Miln/mm3 (4.00-5.20); White Blood Count 18.2 Thou/mm3 (3.6-11.0)
[2025-01-12] MEDS: ceFAZolin/D5W 2 GM IV 2 GM/100 ML BAG IV (05:37)
[2025-01-12 08:30] VITALS: BP 114/75; PULSE 79; RESP 16; TEMP 37.4; O2SAT 97
[2025-01-12] MEDS: DOCUSATE SOD 100 MG CAPSULE PO (09:44)
--- NOTE | 2025-01-12 11:09 | PD.LDPPPRG ---
Subjective Subjective Interval history: The patient is a 24-year-old G1 now P1 001 day #1 status post vacuum-assisted vaginal delivery by Dr. Campbell around 11:00 in the morning on 01/11/2025. She did have vaginal tearing with multiple lacerations. All were first to second-degree's. Dr. Campbell kept the patient on Ancef for 24 hours and TXA for 24 hours. He also placed a Pinto and vaginal packing. The plan will be to remove the Pinto and vaginal vaginal packing now. This morning, patient is resting comfortably in bed with her baby on her chest. Her is at bedside. Patient denies fevers chills heavy vaginal bleeding. Her pain is controlled with oral pain medication. Her predelivery hemoglobin was 12.8. Her postdelivery hemoglobin is 10.4. She has been afebrile. She is working on breast-feeding. She is tolerating a general diet and passing flatus. Her Pinto catheter is draining a large amount of clear yellow urine. Exam Vital Signs Temp Pulse Resp BP Pulse Ox O2 Del Method 99.4 F 79 16 114/75 97 Room Air 01/12/25 08:30 01/12/25 08:30 01/12/25 08:30 01/12/25 08:30 01/12/25 08:30 01/12/25 08:30 Narrative Exam Patient is alert and oriented x 3 in no apparent distress. Her fundus is firm and nontender at umbilicus. Vaginal packing was removed. Patient's outside of her perineum appears grossly normal without a lot of swelling. No signs of vulvar edema or erythema. The lacerations are not examined. Extremities showed no significant edema or erythema Objective Labs 01/12/25 04:47 Labs: Laboratory Results - last 24 hr 01/12/25 04:47 WBC 18.2 H D RBC 3.18 L Hgb 10.4 L D Hct 30.3 L MCV 95 MCH 32.7 MCHC 34.3 RDW Std Deviation 48.3 H Plt Count 124 L D Neut % (Auto) 80 Lymph % (Auto) 15 Mcpherson % (Auto) 5 Eos % (Auto) 0 Baso % (Auto) 0 Neut # (Auto) 14.5 H Lymph # (Auto) 2.7 Mcpherson # (Auto) 0.8 Eos # (Auto) 0.1 Baso # (Auto) 0.0 Immature Gran # (Auto) 0.09 H Absolute Nucleated RBC 0.00 Immature Gran % 1 H Nucleated RBC % 0 Assessment & Plan Problem List (1) care following vaginal delivery: Status: Acute Assessment and plan: The patient is post day #1 status post vacuum-assisted vaginal delivery around 11:00 in the morning for decelerations around 11:00 in the morning 01/11/2025. Pinto catheter removed. Ancef and TXA discontinued. Packing removed. Patient to ambulate. Use the restroom. Will evaluate later to see if patient can be discharged home today. All questions answered. Time Spent With Patient Time: Total time spent is greater than 50% in coordination of care (as documented) at patient's floor/unit and/or counseling patient: Time with patient: less than 15 minutes
--- NOTE | 2025-01-12 12:35 | PC.NURSE ---
@[id number] Dr. Garvin at bedside, removed vaginal packing. patient tolerated well
[2025-01-12 15:44] VITALS: BP 116/74; PULSE 96; RESP 18; TEMP 36.9
[2025-01-12] MEDS: DIPHTH,PERTUSS(ACELL),TET VAC 0.5 ML SYR- ADULT IMi (17:06)
--- NOTE | 2025-01-12 19:40 | PD.LDDS ---
DS: Providers Provider Date of admission: 01/10/25 16:15 Primary care physician: Physician No Primary/Family Admitting Provider: Jennifer Garvin MD ([facility]) Attending Provider on Admission: Kelvin Campbell MD Consults: 01/11/25 12:00 Referral Routine Comment: Attending Provider on DC: Jennifer Garvin MD ([facility]) Discharging Provider: Jennifer Garvin MD ([facility]) Anticipated date of discharge: 01/12/25 DS: Diagnosis Discharge Diagnosis (1) care following vaginal delivery: Status: Acute Assessment & Plan: Patient is day #1 status post vacuum-assisted vaginal delivery around 11:00 in the morning 01/11/2025. She had vaginal packing placed and a Pinto overnight. This was all removed this morning. Patient's hemoglobin is 12.8 predelivery 10.4 postdelivery. She is stable ambulating and wants to go home it is approximately 1999 on 01/12/2025. Problem List Completed Was Problem List Reviewed/Reconciled?: Yes Summary/Hosp Course Brief History: The patient is a 24-year-old G1, P0 who started her care with Dr. Hameed and then transferred to [facility] at the [facility] who presented reporting ruptured membranes at 3:00 this afternoon. On presentation she was 1 cm. She had an ultrasound performed revealing a vertex presentation. I examined the patient approximately 7:00 PM and she was 2 cm approximately 70% effaced with a -2 station and posterior cervix. Patient had a lot of clear fluid with exam. The plan will be a Cytotec induction. Patient was given 50 mg milligrams of Cytotec at 1840. Group B strep is negative. Please see history and physical for further details. The patient went on to progress to complete and had a vacuum-assisted vaginal delivery by Dr. Campbell at 11 AM 01/11/2025. Please see delivery notes for further details. The patient had some lacerations requiring vaginal packing, and overnight Pinto catheter, Ancef for 24 hours and TXA for 24 hours. All this was removed at 11 AM 01/12/2025. Patient then ambulated. Her bleeding was minimal. She was voiding normally. Her pain was under control. She wanted to be discharged home day #1 and was discharged approximately 1999 on 01/12/2025. Peripartum Data Delivery Method: Normal Vaginal Delivery Laceration Description: see Delivery Summary complications: none Status at Discharge Cognitive/behavioral status at discharge: Patient is alert and oriented x 3 in no apparent distress Functional status at discharge: independent ambulation Overall status at discharge: patient is progressing back to baseline Time Spent with Patient Time attestation: Total time spent providing and/or coordinating discharge services: Time spent: Less than 30 minutes Specific discharge activities: Pelvic rest x 6 weeks Exam Vital Signs Temp Pulse Resp BP Pulse Ox O2 Del Method 98.5 F 96 18 116/74 97 Room Air 01/12/25 15:44 01/12/25 15:44 01/12/25 15:44 01/12/25 15:44 01/12/25 08:30 01/12/25 15:44 Narrative Exam Patient is alert and oriented x 3 in no apparent distress. Fundus is firm at umbilicus. Extremities show no significant edema or erythema. Discharge Plan Plan Patient Disposition: HOME (Self Care) Disposition Comment: Stable Prescriptions/Referrals Prescriptions/Med Rec: New acetaminophen 325 mg Tablet 650 mg PO Q6HR PRN (Reason: Patient rated pain of 3) Qty: 60 0RF ibuprofen 400 mg Tablet 800 mg PO Q8HR PRN (Reason: Pain Scale 4-6 (Moderate) Qty: 60 0RF docusate sodium 100 mg Capsule 100 mg PO QDAY Qty: 60 0RF No Action Classic 28 mg iron- 800 mcg tablet 1 tab PO QDAY Referrals: No Primary/Family,Physician [Primary Care Provider] - Patient/Caregiver Discharge Instructions Discharge Activity: activity as tolerated Other Discharge Activity Instructions:: Pelvic rest x 6 weeks Other Discharge Diet Instructions: General Diet, drink lots of water with breast-feeding. Education Materials: After a Vaginal , : Caring for Yourself Print Language: Bulgarian Activity Restrictions/Additional Instructions: Call with heavy bleeding, fevers, or severe depression. Follow-up with your OB in 2 to 4 weeks. Stand Alone Forms: Madelyn Award Info., Patient Portal Info Letter Vaccines Vaccines Given During Stay: TDaP Discharge Order Discharge Orders: Discharge (Routine); Ordered 01/12/25 Ordered By: Jennifer Garvin ([facility]) Planned Discharge Date 01/12/25
== END 2025-01-12 20:46 | disposition home or self-care (01) | DRG 560 ==
LOC: S4SX 01-11 11:17 → S4NX 01-11 14:31
PROVIDERS: Admitting Provider Obstetrics & Gynecology; Visit Provider Obstetrics & Gynecology
DX: O42.92 Full-term premature rupture of membranes, unspecified as to length of time between rupture and onset of labor (principal); Z37.0 Single live birth; Z3A.39 39 weeks gestation of pregnancy; Z23 Encounter for immunization
CPT/HCPCS: 36415; 59025; 59409; 76815; 84112; 85025; 86780; 86850; 86900; 86901; 90715; 94762; J0131; J0689; J2590; J2795; J3010; J3490; J7120; A9270

== ENCOUNTER 2025-01-29 11:27 | Outpatient (AMB) | payer MEDICAID, SELFPAY ==
--- NOTE | 2025-01-29 11:31 | AMBOBPPN_ITS ---
Vital Signs 01/29/25 11:38 Height 1.65 m Height Method Stated Weight 83.518 kg Weight Measurement Method Standing Scale BMI 30.6 BP 117/76 Blood Pressure Source Automatic Cuff Blood Pressure Location Left Upper Arm Position Sitting Respiration 18 Pulse 88 Pulse Source Monitor Temp 98.5 F Temp Source Oral Pulse Oximetry (%) 98 Oxygen Delivery Method Room Air Allergies/Home Meds Allergies & Medications Allergies No Known Allergies Allergy (Verified 01/29/25 11:39) Medication Reconciliation vits no.126-ferrous fum 28 mg iron-folic acid 800 mcg tablet (Classic ) 1 tab PO QDAY 01/01/25 [History Confirmed 01/29/25] acetaminophen 325 mg tablet 650 mg (2 x 325 mg) PO Q6HR PRN Patient rated pain of 3 #60 tabs 01/12/25 [Rx Confirmed 01/29/25] docusate sodium 100 mg capsule 100 mg PO QDAY #60 caps 01/12/25 [Rx Confirmed 01/29/25] ibuprofen 400 mg tablet 800 mg (2 x 400 mg) PO Q8HR PRN Pain Scale 4-6 (Moderate #60 tabs 01/12/25 [Rx Confirmed 01/29/25] Intake Visit Data Collection New Patient or Established: Established Patient (seen at [facility] within 3 years) Reason for Visit:: Seen by Clinical Staff ONLY (RN/MA): No Advanced Research Programs Director Required: No Do You Feel Safe at Home: Yes Authorities Contacted: N/A PCP or OBGYN visit in last 3 months: Yes Hx Now: No Are you currently on any form of Control: No Pain Present Currently: No Pain Scale Used: Chaidez-Johnson/Numerical Pain scale:: 0 Smoking Status Smoking Status: Never smoker 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 History Past Medical History: No Hx Neurological Disorders, No Hx Cardiac Disorders, No Hx Cancer, No Hx Blood Disorders, No Hx Gastrointestinal Disorders, No Hx Renal Disease, No Hx Diabetes Mellitus Type 1 and No Hx Diabetes Mellitus Type 2 Questionnaires Covid-19 Vaccine Questionnaire Has patient been vacinated for Covid-19 Have you been vacinated for Covid-19: Yes Social History Living Situation History Lives With: Family Housing: House Tobacco History Smoking Status: Never smoker Second Hand Smoke Exposure: No Alcohol History Alcohol Intake: Never Domestic Abuse History Do You Feel Safe at Home: Yes EPDS - PP Depression Screening [place] Pospartum Depression Screen I have been able to laugh and see the funny side of things: (0) As much as I always could I have looked forward with enjoyment to things: (0) As much as I ever did I have blamed myself unnecessarily when things went wrong: (2) Yes, some of the time I have been anxious or worried for no good reason: (2) Yes, sometimes I have felt scared or panicky for no very good reason: (0) No, not at all Things have been getting on top of me: (0) No, I have been coping as well as ever I have been so unhappy that I have had difficulty sleeping: (0) No, not at all I have felt sad or miserable: (1) Not very often I have been so unhappy that I have been crying: (1) Only occasionally The thought of harming myself has occurred to me: (0) Never EPDS completed yes Care OB Visit Log OB Flowsheet Initial Weight: Not Recorded Date -?-?-?-?-?-?-?-?-?-?-?-?- EGA Weight BP Alb Glu CTX Pres Fundal ht FHR Mov Dilation Station Effacement Hx Notes Visit Note 11/26/24 -?-?-?-?-?-?-?-?-?-?-?-?- 32w 5d 90.492 kg 114/73 absent unknown 31 146 active 24 yo , OB transfer from Dr Aquino. no problem with . no PTL complaints, fetus active. decline TDAP today discu ss TDAP. discuss PTL precaution, increase fluid, fkc BID. continue PNV, discuss diet and weight, rtc 2 week OBC 12/24/24 -?-?-?-?-?-?-?-?-?-?-?-?- 36w 5d 94.404 kg 115/83 occasional cephalic 37 145 active 1 -4 50 increased pressure, deneis leaking or bleeding, fetus active increased pressure, deneis leaking or bleeding, fetus acti ve, cx soft,post GBS today, discuss labor precaution, fkc bid, call for sono. comfort measure early labor, discuss danger s/s 01/01/25 -?-?-?-?-?-?-?-?-?-?-?-?- 37w 6d 95.878 kg 114/74 occasional cephalic 37 145 active 1 -4 50 CX: soft. fetus active, OCC uc, no VB or LOF discuss fkc bid, discuss labor precaution and danger s/s, increase fluid, rtc 1 week obc 01/09/25 -?-?-?-?-?-?-?-?-?-?-?-?- 39w 0d 96.275 kg 103/69 occasional cephalic 38 145 active 1 -3 50 cx soft/mid. Reports good movement. Increased cramps today. No bleeding. No leaking fluid. IOL 01/17/25. Di scussed labor precautions. I discussed kick counts twice a day. Parameters. Discussed ER precautions. Increase fluids. Discussed weight gain. And induction is scheduled for January 17, 2025. ROBINA Calculator Estimated Delivery Date Method Current WG Current Estimate 01/16/25 Ultrasound #1 41w 6d Other Estimates 01/02/25 LMP (Uncertain) 43w 6d 01/11/25 Ultrasound #2 42w 4d Notes Visit Date: 01/09/25 Last Updated by: Jen Stout CNM 24 yo . 1st ob sono 08/14/24. IUP 17.6, EDC 01/16/25. lmp 03/28/25. EDC 01/02/25. UNsure dates, B+.abs-,rpr;;nr, rub imm, hbsag-,hiv-,gc/ct-, 1 hr gtt wnl. nipt/carrier screen- Visit Date: 01/01/25 Last Updated by: Jen Stout CNM 12/24:gbs- Visit Date: 11/26/24 Last Updated by: Jen Stout CNM 24 yo g1po. LMP 03/28/24. wrong dates, sono 08/14/24: 17w6. EDC 01/16/25. B+, abs-,rpr;;nr, rub imm, hbsag-, hIV-, HC-, gc/ct-, 1 hr gtt:wnl, A1: 5.1, NIP T/AFP.carrier screen- HPI Interval History: 24-year-old 1 para 1 for 2-week . Patient had a vaginal delivery January 11, 2025. A baby boy weighing 6 pounds 11. Patient's breast- feeding and bonding with baby. She does state that she is having little bit of difficulty with making milk volume. Unsure about control. Father of the baby is involved. Patient is happy no depression. She had her labor augmented because she ruptured her membranes and did not go to labor. 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 Lungs clear no wheezes. Abdomen is soft nontender. Uterus well involuted. Perineum is intact no lacerations. No swelling. Small lochia. Negative Homans' sign. 2+ DTRs. No edema no swelling. Breasts are soft General Limitations: no limitations General Appearance: alert, in no apparent distress, comfortable, cooperative, healthy appearing, well developed and well groomed Head Head exam: atraumatic, normocephalic and normal inspection Chest Chest inspection: Present normal inspection and symmetric chest wall rise Resp Respiratory exam: Present normal lung sounds bilaterally Card Cardiovascular exam: Present regular rate, normal rhythm and normal heart sounds Abdominal Abdominal exam: Present soft and normal bowel sounds Psych Psychiatric exam: Present normal affect and normal mood Office Procedures OB Clinic LOC & Office Proc's Nursing/Assessment Patient Status: Established Patient OB Clinic Nursing Assessment: Medication Reconciliation, Update PMH in EMR and Vital Signs OB Clinic Coordination of Care: Complex Care and Chronic Disease 1-5, Consent,records obtained, informed consent, Education Simp Pt/Fam, 1 Ins Authorization, Lab and Imaging orders, Results/Orders obtained and Staff clarify orders Established Patient Charge Established Patient Point Assignment: 120 Established Patient Point Charge: EP Level 4 (120-155) Assessment & Plan Diagnosis / Problem List (1) Routine Follow-Up: (2) 2 weeks follow-up: Status: Acute Plan No sex. Can. Discussed comfort measures for perineal laceration. Sitz bath's twice a day. Discussed control options. Continue prenatals. I discussed I discussed latching and breast-feeding. Advised methods to increase milk supply continue breast-feeding every 2 hours. Increase fluids. Maybe try liquid Gold or. She is tablets. Return in 4 weeks for 6-week control Care Reviewed delivery summary and any complications: Yes Uterus involuted to: 3 below umb Perineal / incision healing noted: Yes Screened for depression: Yes Depression counseling provided: No Discussed family planning & contraception: Yes Contraception planned: unsure Counseling on safe resumption of sexual activity: Yes Counseling on gradual excercise: Yes Discussed and concerns (describe), provided support: Yes Referred to epic ambulatory specialists: Yes Counseled on good nutrition, hydration, and self care: Yes Reviewed vaccine status: No Chronic & current problems reconciled on problem list: Yes Infant care discussed; questions answered: feeding Follow up: routine/prn Additional counseling & anticipatory guidance provided: Sitz bath's and comfort measures for perineal laceration. No sex. Return in 4 weeks for 6-week control. I advise increased fluids and frequent feeds for breast-feeding and suggested liquid goal or Brewers yeast tablets. Return in 4 weeks (FP) Tobacco Smoking Status: Never smoker
[2025-01-29 11:38] VITALS: BP 117/76; PULSE 88; RESP 18; TEMP 36.9; O2SAT 98; BMI 30.6
== END 2025-01-29 12:22 | disposition home or self-care (01) ==
LOC: HODSOBC 11:27
PROVIDERS: Supervising Provider Advanced Practice Midwife; Visit Provider Advanced Practice Midwife
DX: Z39.2 Encounter for routine postpartum follow-up (principal); Z39.1 Encounter for care and examination of lactating mother
CPT/HCPCS: 99214; G0463

== ENCOUNTER 2025-02-26 10:50 | Outpatient (AMB) | payer MEDICAID, SELFPAY ==
--- NOTE | 2025-02-26 10:58 | AMBOBPPN_ITS ---
Vital Signs 02/26/25 11:07 Height 1.65 m Height Method Stated Weight 84.141 kg Weight Measurement Method Standing Scale BMI 30.9 BP 108/72 Blood Pressure Source Automatic Cuff Blood Pressure Location Left Upper Arm Position Sitting Respiration 16 Pulse 86 Pulse Source Monitor Temp 96.7 F L Temp Source Oral Pulse Oximetry (%) 96 Oxygen Delivery Method Room Air Allergies/Home Meds Allergies & Medications Allergies No Known Allergies Allergy (Verified 02/26/25 11:08) Medication Reconciliation vits no.126-ferrous fum 28 mg iron-folic acid 800 mcg tablet (Classic ) 1 tab PO QDAY 01/01/25 [History Confirmed 02/26/25] Intake Visit Data Collection New Patient or Established: Established Patient (seen at [facility] within 3 years) Reason for Visit:: / DISCUSS CONTROL Seen by Clinical Staff ONLY (RN/MA): No Neuropathologist Required: No Do You Feel Safe at Home: Yes Authorities Contacted: N/A PCP or OBGYN visit in last 3 months: Yes Hx Now: Yes Are you currently on any form of Control: No Pain Present Currently: No Pain Scale Used: Chaidez-Johnson/Numerical Pain scale:: 0 Smoking Status Smoking Status: Never smoker 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: Past Medical History Past Medical History: No Hx Neurological Disorders, No Hx Cardiac Disorders, No Hx Cancer, No Hx Blood Disorders, No Hx Gastrointestinal Disorders, No Hx Renal Disease, No Hx Diabetes Mellitus Type 1 and No Hx Diabetes Mellitus Type 2 Questionnaires Covid-19 Vaccine Questionnaire Has patient been vacinated for Covid-19 Have you been vacinated for Covid-19: Yes Social History Living Situation History Lives With: Family Housing: House Tobacco History Smoking Status: Never smoker Second Hand Smoke Exposure: No Alcohol History Alcohol Intake: Never Domestic Abuse History Do You Feel Safe at Home: Yes EPDS - PP Depression Screening Sharon Pospartum Depression Screen I have been able to laugh and see the funny side of things: (1) Not quite so much now I have looked forward with enjoyment to things: (1) Rather less than I used to I have blamed myself unnecessarily when things went wrong: (1) Not very often I have been anxious or worried for no good reason: (1) Hardly ever I have felt scared or panicky for no very good reason: (2) Yes, sometimes Things have been getting on top of me: (2) Yes, sometimes I haven't been coping as well as usual I have been so unhappy that I have had difficulty sleeping: (1) Not very often I have felt sad or miserable: (1) Not very often I have been so unhappy that I have been crying: (1) Only occasionally The thought of harming myself has occurred to me: (0) Never EPDS completed yes Care OB Visit Log OB Flowsheet Initial Weight: Not Recorded Date -?-?-?-?-?-?-?-?-?-?-?-?- EGA Weight BP Alb Glu CTX Pres Fundal ht FHR Mov Dilation Station Effacement Hx Notes Visit Note 11/26/24 -?-?-?-?-?-?-?-?-?-?-?-?- 32w 5d 90.492 kg 114/73 absent unknown 31 146 active 24 yo , OB transfer from Dr Aquino. no problem with . no PTL complaints, fetus active. decline TDAP today discu ss TDAP. discuss PTL precaution, increase fluid, fkc BID. continue PNV, discuss diet and weight, rtc 2 week OBC 12/24/24 -?-?-?-?-?-?-?-?-?-?-?-?- 36w 5d 94.404 kg 115/83 occasional cephalic 37 145 active 1 -4 50 increased pressure, deneis leaking or bleeding, fetus active increased pressure, deneis leaking or bleeding, fetus acti ve, cx soft,post GBS today, discuss labor precaution, fkc bid, call for sono. comfort measure early labor, discuss danger s/s 01/01/25 -?-?-?-?-?-?-?-?-?-?-?-?- 37w 6d 95.878 kg 114/74 occasional cephalic 37 145 active 1 -4 50 CX: soft. fetus active, OCC uc, no VB or LOF discuss fkc bid, discuss labor precaution and danger s/s, increase fluid, rtc 1 week obc 01/09/25 -?-?-?-?-?-?-?-?-?-?-?-?- 39w 0d 96.275 kg 103/69 occasional cephalic 38 145 active 1 -3 50 cx soft/mid. Reports good movement. Increased cramps today. No bleeding. No leaking fluid. IOL 01/17/25. Di scussed labor precautions. I discussed kick counts twice a day. Parameters. Discussed ER precautions. Increase fluids. Discussed weight gain. And induction is scheduled for January 17, 2025. ROBINA Calculator Estimated Delivery Date Method Current WG Current Estimate 01/16/25 Ultrasound #1 45w 6d Other Estimates 01/02/25 LMP (Uncertain) 47w 6d 01/11/25 Ultrasound #2 46w 4d Notes Visit Date: 01/09/25 Last Updated by: Jen Stout CNM 24 yo . 1st ob sono 08/14/24. IUP 17.6, EDC 01/16/25. lmp 03/28/25. EDC 01/02/25. UNsure dates, B+.abs-,rpr;;nr, rub imm, hbsag-,hiv-,gc/ct-, 1 hr gtt wnl. nipt/carrier screen- Visit Date: 01/01/25 Last Updated by: Jen Stout CNM 12/24:gbs- Visit Date: 11/26/24 Last Updated by: Jen Stout CNM 24 yo g1po. LMP 03/28/24. wrong dates, sono 08/14/24: 17w6. EDC 01/16/25. B+, abs-,rpr;;nr, rub imm, hbsag-, hIV-, HC-, gc/ct-, 1 hr gtt:wnl, A1: 5.1, NIPT/AFP.carrier screen- HPI Interval History: 24-year-old 1 para 1 for 6-week . Patient had a vaginal January 11, 2025. Midline episiotomy. A baby boy weighing 6 pounds 11 ounces. Breast-feeding. Patient has good family support her. is involved. She had sex 5 days ago with a condom. They plan to use condoms for contraception. Patient scored 7 on her Sharon screen. Complains of feeling depressed and overwhelmed at times. She feels guilty when she takes time for herself. No other complaints or discomforts noted. 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 Lungs clear no wheezes. Abdomen is soft nontender. Uterus well involuted. Perineum is intact no lacerations. No swelling. Small lochia. Negative Homans' sign. 2+ DTRs. No edema no swelling. Breasts are soft General Limitations: no limitations General Appearance: alert, in no apparent distress, comfortable, cooperative, healthy appearing, well developed and well groomed Chest Chest inspection: Present normal inspection and symmetric chest wall rise Resp Respiratory exam: Present normal lung sounds bilaterally Card Cardiovascular exam: Present regular rate, normal rhythm and normal heart sounds Abdominal Abdominal exam: Present soft and normal bowel sounds Extremities Extremities exam: Present normal inspection and full ROM Psych Psychiatric exam: Present normal affect and normal mood Office Procedures OB Clinic LOC & Office Proc's Nursing/Assessment Patient Status: Established Patient OB Clinic Nursing Assessment: Medication Reconciliation, Update PMH in EMR and Vital Signs OB Clinic Coordination of Care: Complex Care and Chronic Disease 1-5, Consent ,records obtained, informed consent, Education Simp Pt/Fam, 1 Ins Authorization, Lab and Imaging orders, Results/Orders obtained and Staff clarify orders Established Patient Charge Established Patient Point Assignment: 120 Post Follow-up Visit Post Follow up Visit: Yes Assessment & Plan Diagnosis / Problem List (1) 6 weeks follow-up: Status: Acute Plan Referred patient to [facility] and her family practice doctor for evaluation of depression. [facility] also has behavioral health on staff the can assess patient for depression. I offered control the patient she declined. Plans to use condoms. Extend disability for 4 weeks. Discussed diet and exercise. Continue prenatals. Discussed latching and I also discussed pumping and offered patient to stop by the breast-feeding clinic for help. Return in 4 weeks for evaluation Care Reviewed delivery summary and any complications: Yes Uterus involuted to: 3 below umb Perineal / incision healing noted: Yes Screened for depression: Yes Depression counseling provided: Yes Discussed family planning & contraception: Yes Contraception planned: condom Counseling on safe resumption of sexual activity: Yes Counseling on gradual excercise: Yes Discussed and concerns (describe), provided support: Yes Referred to grounds/maintenance specialist: Yes Counseled on good nutrition, hydration, and self care: Yes Reviewed vaccine status: No Chronic & current problems reconciled on problem list: Yes Infant care discussed; questions answered: feeding Follow up: routine/prn Additional counseling & anticipatory guidance provided: continue condom, fluid, continue PNV, extend disability to 04/28/25. f/u with at [facility]
[2025-02-26 11:07] VITALS: BP 108/72; PULSE 86; RESP 16; TEMP 35.9; O2SAT 96; BMI 30.9
== END 2025-02-26 11:45 | disposition home or self-care (01) ==
LOC: HODSOBC 10:50
PROVIDERS: Supervising Provider Advanced Practice Midwife; Visit Provider Advanced Practice Midwife
DX: Z39.2 Encounter for routine postpartum follow-up (principal); Z39.1 Encounter for care and examination of lactating mother
CPT/HCPCS: 59430